=== PATIENT | female | born 1995 | race Caucasian/White ===

== ENCOUNTER 2020-01-21 11:23 | Emergency (ER) | payer OTHER, SELFPAY ==
--- NOTE | ~2020-01-21 | XR_ITS ---
EXAMINATION: XR ankle RT min 3V DATE: 01/21/2020 12:16 INDICATION: Right ankle injury and pain. TECHNIQUE: 4 views of right ankle were obtained. COMPARISON: None. FINDINGS: Bone alignment is normal. No fracture. Joint spaces are well maintained. There is ankle sof t tissue swelling. IMPRESSION: 1. No fracture. Reviewed, dictated and finalized at location [facility] IMPRESSION: 1. No fracture.
[2020-01-21 11:57] VITALS: BP 121/69; PULSE 82; RESP 16; TEMP 36.8; O2SAT 100
--- NOTE | 2020-01-21 13:11 | ED.LOWEXIN ---
HPI - Extremity Injury (Lower) General Chief Complaint: Extremity Injury, Lower Stated Complaint: fall right ankly injury Time Seen by Provider: 01/21/20 13:11 Source: patient and RN notes reviewed Mode of arrival: ambulatory Limitations: no limitations History of Present Illness HPI Narrative: 24-year-old female who presents to [facility] care with complaints of right ankle injury which happened yesterday. Patient states she stepped off of a step onto the grass and twisted the ankle inwardly causing pain to the lateral aspect of her ankle with noted swelling present. Patient states pain is 3/10 at rest but increases to 9/10 with any ambulation or weight bearing. Patient denies any tingling or numbness to her right foot, foot has strong pedal and posterior tibial pulses to her right foot. MD complaint: ankle injury Onset (ago): day(s) (1) Injury: Right: ankle Type of Injury: inversion Place: home Severity: severe Severity scale (1-10): 9 Relieving factors: nothing Exacerbating factors: movement and other (weight bearing) Context: other (twisted ankle) Associated symptoms: snap/pop sensation Other symptoms: none Treatments prior to arrival: cold therapy Related Data Home Medications Medication Instructions Recorded Confirmed No Home Medications 01/21/20 01/21/20 Allergies Allergy/AdvReac Type Severity Reaction Status Date / Time amoxicillin Allergy Rash Verified 01/21/20 13:00 Review of Systems Review of Systems: Narrative: CONSTITUTIONAL: Denies fever, chills, or sweats. EYES: Denies visual changes, redness, or discharge. ENT: Denies rhinorrhea, congestion, sore throat, or otalgia. CARDIOVASCULAR: Denies chest pain, palpitations, or edema. RESPIRATORY: Denies cough or dyspnea. GASTROINTESTINAL: Denies abdominal pain, nausea, vomiting, or diarrhea. GENITOURINARY: Denies dysuria or hematuria. SKIN: Denies rash or itching. MUSCULOSKELETAL: Denies back pain,pain to lateral aspect of right ankle,, or myalgia. NEUROLOGIC: Denies headache, numbness, or weakness. PSYCHIATRIC: Denies anxiety or depression. All systems reviewed & are unremarkable except as noted in HPI and below PMFSH Past Medical History Medical History (Updated 01/21/20 @ 13:13 by Caroline Flaherty NP) Migraines Social History Social History (Updated 01/21/20 @ 13:22 by Caroline Flaherty NP) Smoking status: Never smoker Living arrangements: with family Gender identity (if verbalized by the patient): Female Comments At time of signature, agree with nursing past medical, surgical, social and family history. There is no relevant family history pertinent to the presenting complaint Exam Narrative: Exam Narrative: GENERAL: Well-appearing, well-nourished, and in no acute distress. HEAD: Normocephalic, atraumatic. EYES: PERRLA and EOMI. ENT: Nares clear, no rhinorrhea or epistaxis. Mucous membranes moist. NECK: Supple. CHEST: Clear to auscultation. No respiratory distress. HEART: Regular rate and rhythm. No murmur heard. Normal peripheral pulses. ABDOMEN: Soft, nontender, nondistended, normal active bowel sounds. EXTREMITIES: Normal range of motion. No edema.with exception of pain and swelling to right lateral ankle from injury, noted swelling lateral ankle, Circulation sensation and mobility intact with no noted deformity. SKIN: Warm, dry, no rash. NEURO: No focal deficits. Alert and oriented x3. Course Vital Signs Vital signs: Vital Signs Temperature 36.8 C 01/21/20 11:57 Pulse Rate 82 01/21/20 11:57 Respiratory Rate 16 01/21/20 11:57 Blood Pressure 121/69 01/21/20 11:57 Pulse Oximetry 100 01/21/20 11:57 Temperature 36.8 C 01/21/20 11:57 Pulse Rate 82 01/21/20 11:57 Respiratory Rate 16 01/21/20 11:57 Blood Pressure 121/69 01/21/20 11:57 Pulse Oximetry 100 01/21/20 11:57 MDM - Extremity Injury (Lower) Differential Diagnosis Differential diagnosis: Likely ankle sprain and strain, ankle fracture
== END 2020-01-21 11:59 | disposition home or self-care (01) ==
PROVIDERS: Emergency Provider Registered Nurse; PCP Family Medicine
DX: S93.401A Sprain of unspecified ligament of right ankle, initial encounter (principal); S96.911A Strain of unspecified muscle and tendon at ankle and foot level, right foot, initial encounter; X50.9XXA Other and unspecified overexertion or strenuous movements or postures, initial encounter
CPT/HCPCS: 73610; 99203; G0463

== ENCOUNTER 2023-05-31 10:03 | Emergency (ER) | payer OTHER, SELFPAY ==
--- NOTE | 2023-05-31 10:17 | ED.URI ---
HPI - URI/Sore Throat General Chief Complaint: Upper Respiratory Infection Stated Complaint: sorethroat Time Seen by Provider: 05/31/23 10:25 Source: patient Mode of arrival: ambulatory Limitations: no limitations History of Present Illness HPI Narrative: Patient is a 27-year-old female who presents with sore throat for 2 days. Also reports intermittent body aches, ear pain. Denies any cough, congestion, fever, chills, nausea, vomiting, diarrhea. Patient is 26 weeks and has positive exposure to strep. Has not taken anything for symptoms. Related Data Home Medications Medication Instructions Recorded Confirmed vits [id number] fum 1 tablet PO DAILY 05/31/23 05/31/23 28 mg iron-folic acid 800 mcg tablet (Classic ) Allergies Allergy/AdvReac Type Severity Reaction Status Date / Time amoxicillin AdvReac Mild Rash Verified 05/31/23 10:13 Penicillins AdvReac Mild Rash Verified 05/31/23 10:28 Review of Systems Review of Systems: All systems reviewed & are unremarkable except as noted in HPI and below Constitutional: Constitutional: Reports body ache(s), Denies chills, Denies fatigue, Denies fever(s), Denies headache(s), Denies malaise and Denies weakness Eyes: Eyes: Denies blurry vision, Denies itchy eyes and Denies loss of vision ENT: Reports otalgia, Denies headache(s), Denies nasal congestion, Denies sinus pain and Reports sore throat Cardiovascular: Cardiovascular: Denies chest pain, Denies irregular heart rhythm and Denies dyspnea Respiratory: Respiratory: Denies cough and Denies dyspnea Gastrointestinal: Gastrointestinal: Denies abdominal pain, Denies diarrhea, Denies nausea and Denies vomiting Musculoskeletal: Musculoskeletal: Denies back pain, Denies myalgias and Denies arthralgias Integumentary/Breasts: Skin/Breast: Denies pruritus and Denies rash Neurologic: Denies headache(s), Denies loss of vision and Denies weakness Psychiatric: Psychiatric: Reports no additional psychiatric complaints Endocrine: Endocrine: Denies fatigue Allergic/Immunologic: Allergic/Immunologic: Denies itchy eyes PMFSH Past Medical History Medical History (Updated 05/31/23 @ 10:39 by Miranda Vernon APRN) Migraines Social History Social History (Updated 01/21/20 @ 13:22 by MICHAEL Rios Smoking status: Never smoker Living arrangements: with family Gender identity (if verbalized by the patient): Female Comments At time of signature, agree with nursing past medical, surgical, social and family history. There is no relevant family history pertinent to the presenting complaint. Exam Const: General: cooperative, healthy appearing, comfortable, no acute distress and well nourished Nutritional Appearance: well nourished Orientation/consciousness: patient oriented x3 Limitations: no limitations HENMT: Head: normal to inspection, normocephalic and atraumatic Ears: hearing grossly normal bilaterally, external ears normal, TM's normal bilaterally, EAC's normal and no periauricular adenopathy Face/Nose/Sinus: Normal external nose present, Normal nasal mucous membranes and turbinates present, normal facial exam, sinuses nontender and face symmetric Face and sinus: normal facial exam, sinuses nontender and face symmetric Mouth: Yes Normal oral and palatal mucosa present, Yes lip normal, Yes tongue normal, Yes Normal salivary glands and ducts present, Yes oropharynx normal and Yes moist mucous membranes Teeth and gingiva: dentition normal Throat: uvula midline, abnormal tonsil bilateral erythema, exudates and hypertrophy 2+ and posterior oropharynx abnormal erythema Eyes: General: appearance normal, both eyes and all related structures Alignment and Position: alignment normal and position normal Periorbital: periorbital findings normal Eyelids: eyelids normal Pupils: Equal, round and reactive pupils present Neck: Neck: normal visual inspection, full ROM, no lymphadenopathy
[2023-05-31 10:20] VITALS: BP 119/76; PULSE 104; RESP 16; TEMP 36.2; O2SAT 99
== END 2023-05-31 10:45 | disposition home or self-care (01) ==
PROVIDERS: Emergency Provider Nurse Practitioner Family; PCP Family Medicine
DX: O99.512 Diseases of the respiratory system complicating pregnancy, second trimester (principal); Z3A.26 26 weeks gestation of pregnancy; J03.90 Acute tonsillitis, unspecified
CPT/HCPCS: 87081; 87880; 99213; G0463

== ENCOUNTER 2024-07-21 11:33 | Emergency (ER) | payer OTHER, SELFPAY ==
--- NOTE | 2024-07-21 11:43 | ED.URI ---
HPI - URI/Sore Throat General Chief Complaint: Upper Respiratory Infection Stated Complaint: sore throat Time Seen by Provider: 07/21/24 11:56 Source: patient and RN notes reviewed Mode of arrival: ambulatory Limitations: no limitations History of Present Illness HPI Narrative: 28-year-old female presents with concern of for sore throat that started Wednesday. She denies nasal congestion, rhinorrhea, cough, stomach ache. Reports she had a headache yesterday. Reports her son was diagnosed with strep last weekend. Reports her sore throat got worse today MD elicited complaint: sore throat Related Data Home Medications Medication Instructions Recorded Confirmed bupropion HCl 150 mg 24 hr tablet, mg PO 07/21/24 extended release norethindrone (contraceptive) 0.35 mg 07/21/24 mg tablet Allergies Allergy/AdvReac Type Severity Reaction Status Date / Time amoxicillin AdvReac Mild Rash Verified 05/31/23 10:13 Penicillins AdvReac Mild Rash Verified 05/31/23 10:28 Review of Systems Review of Systems: CONSTITUTIONAL: Denies malaise, chills, sweats, or fever. EYES: Denies visual changes, redness, or discharge. ENT: Denies rhinorrhea, congestion, sinus pain, otalgia. Reports sore throat. CARDIOVASCULAR: Denies chest pain, palpitations, or edema. RESPIRATORY: Denies cough. Denies dyspnea. GASTROINTESTINAL: Denies abdominal pain, nausea, vomiting, diarrhea SKIN: Denies rash or itching. MUSCULOSKELETAL: Denies myalgia. NEUROLOGIC: Reports 1 episode of headache. All systems reviewed & are unremarkable except as noted in HPI and below PMFSH Past Medical History Medical History (Updated 07/21/24 @ 12:16 by Nohemy Felix NP) Migraines Social History Social History (Updated 01/21/20 @ 13:22 by Caroline Flaherty NP) Smoking status: Never smoker Living arrangements: with family Gender identity (if verbalized by the patient): Female Comments At time of signature, agree with nursing past medical, surgical, social and family history. There is no relevant family history pertinent to the presenting complaint Exam Narrative: GENERAL: Well-appearing, well-nourished, and in no acute distress. HEAD: Normocephalic EYES: PERRLA, conjunctivae clear ENT: Nares clear. Mucous membranes moist. TM pearly au with sharp light reflex bilaterally; no tragal tenderness. Oropharynx not erythematous without lesions. Tonsils not enlarged and without exudate, no drooling, no hoarseness, no trismus, uvula midline. NECK: Supple. No lymphadenopathy CHEST: Clear to auscultation, breath sounds equal. No wheezing, rhonchi, rales, or stridor. No respiratory distress, speaks in full sentences. HEART: Regular rate and rhythm. No murmur heard. SKIN: Warm, dry, no rash. NEURO: Alert and oriented x3. PSYCH: Normal mood and affect Course Course Emergency Course: Patient is aware of diagnosis, understands and agrees to treatment plan. Anticipatory guidance given. Patient agrees to follow-up as directed and is aware of reasons to seek care at the emergency department. Portions of this record may have been created with voice recognition software Level of Care: Express Care Visit Vital Signs Vital signs: Reviewed. MDM - URI/Sore Throat MDM Narrative Medical decision making narrative: Differential diagnosis considered: Gonzalez virus, strep pharyngitis, allergic rhinitis, upper respiratory tract infection, sinusitis, rhinosinusitis, nasopharyngitis. viral pharyngitis, otitis media, otitis externa, pneumonia, bronchitis, viral cough syndrome, viral syndrome, and influenza. Exam findings show no acute concerns or changes; patient is non-toxic appearing and is in no distress. Patient is appropriate for outpatient treatment and follow-up. Lab Data Attestation: I reviewed the patient's lab results. Critical Care Time Critical Care Time Critical Care Time: No Discharge Plan Discharge Clinical Impression: Pharyngitis Ambika
[2024-07-21 11:57] VITALS: BP 100/75; PULSE 76; RESP 16; TEMP 36.5; O2SAT 100
[2024-07-21 12:14] LABS: EDSTREPNEGPOS1 Negative
== END 2024-07-21 12:19 | disposition home or self-care (01) ==
PROVIDERS: Emergency Provider Nurse Practitioner
DX: J02.9 Acute pharyngitis, unspecified (principal)
CPT/HCPCS: 87081; 87880; 99213; G0463